=== PATIENT | male | born 1970 | race Caucasian/White ===

== ENCOUNTER → 2020-06-12 10:00 | Outpatient (CLI) | payer BC, SELFPAY ==
[2020-06-18 21:51] LABS: HLA B27 Negative (.)
[2020-06-19 02:00] LABS: Rapid Plasmin Reagin (RPR) NONREACTIVE (NONREACTIVE)
== END ==
PROVIDERS: Referring Provider Dermatology; Visit Provider Dermatology
DX: L30.9 Dermatitis, unspecified (principal)
CPT/HCPCS: 36415; 81374; 86592

== ENCOUNTER → 2020-07-08 10:02 | Outpatient (CLI) | payer BC, SELFPAY ==
[2020-07-09 07:07] LABS: HEPATITIS B SURFACE AG Negative (Negative); Hepatitis A AB, Total Negative (Negative); Hepatitis A IgM Antibody Negative (Negative); Hepatitis B Core AB IgM Negative (Negative); Hepatitis B Core Ab Total Negative (Negative); Hepatitis C Ab <0.1 s/co ratio (0.0-0.9)
[2020-07-09 08:45] LABS: Hep B Surface Antibodies Non Reactive (.)
== END ==
PROVIDERS: Referring Provider Dermatology; Visit Provider Dermatology
DX: L43.0 Hypertrophic lichen planus (principal)
CPT/HCPCS: 36415; 86704; 86705; 86706; 86708; 86709; 86803; 87340